=== PATIENT | female | born 1980 | race Caucasian/White ===

== ENCOUNTER 2019-01-29 20:20 | Emergency (ER) | payer SELFPAY ==
[~2019-01-29] VITALS: Ht 157.5 cm; Wt 40.8 kg
[2019-01-29 21:02] LABS: Urine Pregnacy Test Negative (Negative)
[2019-01-29 21:07] LABS: Urine Bacteria NONE SEEN /hpf (None Seen); Urine Blood 1+ /uL (Negative); Urine Hyaline Cast FEW /lpf (0 - 2); Urine Mucus FEW (None Seen); Urine Specific Gravity 1.033 (1.001-1.035); Urine WBC 20 /hpf (0 - 5)
[2019-01-29 21:16] LABS: Basophils # (auto) 0 uL; Eosinophils # (auto) 0.2 uL
[2019-01-29 21:17] LABS: Alcohol, Urine < 3.0 mg/dL (0-5); Amphetamine Screen, Urine NEGATIVE (NEGATIVE); Barbiturate Scree,Urine NEGATIVE (NEGATIVE); Benzodiazephine Screen, Urine NEGATIVE (NEGATIVE); Cannabinoid Screen, Urine POSITIVE (NEGATIVE); Cocaine Screen, Urine NEGATIVE (NEGATIVE); Opiate Scree,Urine NEGATIVE (NEGATIVE); Phencyclidine Screen, Urine NEGATIVE (NEGATIVE)
[2019-01-29 21:32] LABS: Albumin 3.8 g/dL (3.4-5.0); Anion Gap 11 (5-15); Blood Urea Nitrogen 11 mg/dL (7-18); Calcium 8.6 mg/dL (8.5-10.1); Carbon Dioxide 22 mmol/L (21-32); Chloride 111 mmol/L (98-107); Glucose 96 mg/dL (74-106); Potassium 3.9 mmol/L (3.5-5.1); Sodium 144 mmol/L (136-145)
[2019-01-29 21:34] LABS: Basophils % (auto) 0.2 % (0.0-2.0); Eosinophils % (auto) 2.7 % (0.0-7.0); Hematocrit 37.6 % (36.0-46.0); Hemoglobin 11.9 g/dL (12.2-16.2); Lymphocytes # (auto) 3.3 uL; Lymphocytes % (auto) 38.4 % (10.0-50.0); Mean Corpuscular Hemoglobin 26.3 pg (28.0-32.0); Mean Corpuscular Hgb Conc. 31.6 g/dL (32.0-36.0); Mean Corpuscular Volume 83.1 fL (80.0-100.0); Monocytes # (auto) 0.7 uL; Monocytes % (auto) 8.6 % (0.0-12.0); Neutrophils # (auto) 4.3 uL; Neutrophils % (auto) 50.1 % (37.0-80.0); Platelet Count (auto) 275 10^3/uL (140-450); Red Blood Cells 4.53 10^6/uL (4.0-5.20); Red Cell Distribution Width 19.6 % (11.8-14.3); White Blood Cell 8.7 10^3/uL (4.4-10.8)
[2019-01-29 21:35] LABS: Alanine Aminotransferase 34 U/L (13-56); Aspartate Aminotransferase 34 U/L (15-37); Blood Alcohol < 3.0 mg/dL (0-5); GFR African American 140 mL/min; GFR Non-African American 115 mL/min
[2019-01-29 21:37] LABS: Salicylate 3.3 mg/dL (2.8-20.0)
[2019-01-29 21:38] LABS: Alkaline Phosphatase 203 U/L (45-117); Bilirubin, Total 0.2 mg/dL (0.2-1.0)
[2019-01-29 21:39] LABS: Acetaminophen < 2.0 ug/mL (10-30)
[2019-01-30] MEDS ORDERED: PHENAZOPYRIDINE HCL 100 MG TAB PO ONE (07:15)
[2019-01-30] MEDS ORDERED: cefTRIAXone SOD 1,000 MG VL IM ONE (07:15)
[2019-01-30 08:00] VITALS: BP 122/82
== END 2019-01-30 08:27 | disposition left against medical advice (07) ==
LOC: ER 20:24
DX: N39.0 Urinary tract infection, site not specified (principal)
CPT/HCPCS: 36415; 80053; 80307; 80320; 80329; 81001; 81025; 85025; 96372; 99283; J0696